=== PATIENT | male | born 1960 | race Asian ===

== ENCOUNTER → 2024-02-16 | Outpatient (CLI) | payer OTHER ==
[2024-02-16 11:35] LABS: ALBUMIN 3.7 g/dL (3.4-5.0); BILIRUBIN,TOTAL 0.4 mg/dL (0.1-1.0); CALCIUM, TOTAL 9.3 mg/dL (8.8-10.5); CREATININE 1.57 mg/dL (0.60-1.30); POTASSIUM 3.8 mmol/L (3.5-5.1)
== END | disposition home or self-care (01) ==
LOC: MSR 10:18
PROVIDERS: ATTEND Chiropractor
DX: R07.9 Chest pain, unspecified (principal); N18.9 Chronic kidney disease, unspecified
CPT/HCPCS: 80053; 93306